=== PATIENT | female | born 1985 | race Two or more races ===

== ENCOUNTER 2016-12-30 03:13 | Emergency (ER) | payer SELFPAY ==
[~2016-12-30] VITALS: Ht 165.1 cm; Wt 54.4 kg
[2016-12-30 03:38] VITALS: BP 107/73
--- NOTE | 2016-12-30 03:49 | NUR ---
CALLED PT IN [place], NO RESPONSE
--- NOTE | 2016-12-30 04:15 | NUR ---
CALLED PT IN [place], NO RESPONSE
--- NOTE | 2016-12-30 04:49 | NUR ---
CALLED PT IN [place], NO RESPONSE
== END 2016-12-30 04:51 | disposition left against medical advice (07) ==
LOC: ER 03:15
DX: Z53.21 Procedure and treatment not carried out due to patient leaving prior to being seen by health care provider (principal)
CPT/HCPCS: A4606; Z7610

== ENCOUNTER 2016-12-30 04:55 | Emergency (ER) | payer SELFPAY ==
[~2016-12-30] VITALS: Ht 160 cm; Wt 54.4 kg
--- NOTE | 2016-12-30 05:08 | NUR ---
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 PT C/O HEADACHE, NECK AND BACK PAIN. PT PLACED IN GOWN. VSS/RESP EVEN AND UNLABORED/SKIN INTACT, WARM AND DRY/DENIES N/V/D.
--- NOTE | 2016-12-30 05:23 | NUR ---
Dr Salas at bedside to eval.
[2016-12-30] MEDS ORDERED: ACETAMINOPHEN ES 500 MG TABLET ONE (05:27)
--- NOTE | 2016-12-30 05:49 | NUR ---
PT MEDICATED ORDERED PER MD.
--- NOTE | 2016-12-30 05:52 | NUR ---
Patient discharged to home in stable condition. Written and verbal after care instructions given. Patient verbalizes understanding of instruction.Pt ambulatory with a steady gait.
[2016-12-30 05:54] VITALS: BP 125/81
[2016-12-30] MEDS ORDERED: ACETAMINOPHEN 325 MG TABLET PO ONE (06:00)
== END 2016-12-30 05:55 | disposition home or self-care (01) ==
LOC: ER 04:56
DX: S16.1XXA Strain of muscle, fascia and tendon at neck level, initial encounter (principal); J45.909 Unspecified asthma, uncomplicated; F17.200 Nicotine dependence, unspecified, uncomplicated; Z98.890 Other specified postprocedural states; V49.69XA Unspecified car occupant injured in collision with other motor vehicles in traffic accident, initial encounter; Y93.89 Activity, other specified; Y92.410 Unspecified street and highway as the place of occurrence of the external cause; Y99.8 Other external cause status
CPT/HCPCS: 99282; A4606; Z7610

== ENCOUNTER 2021-04-03 13:56 | Emergency (ER) | payer OTHER ==
[~2021-04-03] VITALS: Ht 165.1 cm; Wt 58.1 kg
[2021-04-03] MEDS ORDERED: HYDROCODONE/APAP 5/325MG TABLET ONE (14:47)
[2021-04-03] MEDS ORDERED: ONDANSETRON 4 MG TAB.RAPDIS ONE (14:48)
--- NOTE | 2021-04-03 14:51 | NUR ---
THE PATIENT IS TAKEN TO CT IN STABLE CONDITION
[2021-04-03] MEDS ORDERED: ONDANSETRON 4 MG TAB.RAPDIS SL ONE (15:00)
[2021-04-03] MEDS ORDERED: HYDROCODONE/APAP 5/325MG TABLET PO ONE (15:00)
--- NOTE | 2021-04-03 15:02 | NUR ---
THE PATIENT IS BACK FROM CT IN STABLE CONDITION
[2021-04-03] MEDS ORDERED: DICL50TA7 PO (17:19)
--- NOTE | 2021-04-03 18:30 | NUR ---
Patient discharged to home in stable condition. Written and verbal after care instructions given. Patient verbalizes understanding of instruction.
[2021-04-03 18:47] VITALS: BP 137/78
== END 2021-04-03 18:48 | disposition home or self-care (01) ==
LOC: ER 13:57
DX: M54.50 Low back pain, unspecified (principal); M54.2 Cervicalgia; J45.909 Unspecified asthma, uncomplicated; F17.200 Nicotine dependence, unspecified, uncomplicated; Z98.890 Other specified postprocedural states; V49.49XA Driver injured in collision with other motor vehicles in traffic accident, initial encounter; Y93.89 Activity, other specified; Y92.413 State road as the place of occurrence of the external cause; Y99.8 Other external cause status
CPT/HCPCS: 72125; 72128; 72131; 99284; Q0162